=== PATIENT | male | born 1990 | race Hispanic/Latino ===

== ENCOUNTER 2016-09-24 11:52 | Emergency (ER) | payer SELFPAY ==
[~2016-09-24] VITALS: Ht 175.3 cm; Wt 75.0 kg
[2016-09-24 12:00] VITALS: BP 116/67; PULSE 72; RESP 15; O2SAT 99
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
[2016-09-24] MEDS ORDERED: ACYC200C PO (13:50)
[2016-09-24] MEDS ORDERED: SULF1TAB7 PO (13:50)
== END 2016-09-24 14:05 | disposition left against medical advice (07) ==
LOC: SED 11:52
DX: N48.5 Ulcer of penis (principal); L73.9 Follicular disorder, unspecified; M25.562 Pain in left knee; G89.29 Other chronic pain